=== PATIENT | female | born 1980 | race Caucasian/White ===

== ENCOUNTER 2019-10-11 14:57 | Emergency (ER) | payer MEDICAID ==
[~2019-10-11] VITALS: Ht 154.9 cm; Wt 81.2 kg
[2019-10-11] MEDS ORDERED: ONDANSETRON HCL/PF 4 MG/2 ML VIAL ONE (16:54)
[2019-10-11] MEDS ORDERED: IV NS 0.9% 1,000 ML BAG IV ONE (17:00)
[2019-10-11] MEDS ORDERED: ONDANSETRON HCL/PF 4 MG/2 ML VIAL IVP ONE (17:00)
--- NOTE | 2019-10-11 17:00 | NUR ---
PT BIB SELF C/O N/V/D/ABD PAIN X1-2 DAYS. ABD SOFT NON-TENDER. RESP EVEN UNLABORED. SKIN WARM DRY. AMBULATORY STEADY GAIT. IN ER BED 10.
[2019-10-11 17:06] LABS: BASOPHILS % (AUTO) 0.5 % (0.0-2.0); EOSINOPHILS % (AUTO) 4.9 % (0.0-6.0); HEMATOCRIT 43 % (33-45); HEMOGLOBIN 14.4 g/dL (11.5-14.8); LYMPHOCYTES # (AUTO) 1.6 /CMM (0.8-4.8); LYMPHOCYTES % (AUTO) 28.1 % (20.0-44.0); MEAN CORPUSCULAR HGB CONC 33 g/dl (31.0-36.0); MEAN CORPUSCULAR VOLUME 89 fL (82-100); MONOCYTES # (AUTO) 0.4 /CMM (0.1-1.30); MONOCYTES % (AUTO) 7.2 % (2.0-12.0); NEUTROPHILS # (AUTO) 3.3 /CMM (1.8-8.9); NEUTROPHILS % (AUTO) 59.3 % (43.0-81.0); PLATELET COUNT (AUTO) 274 /CMM (150-450); RED BLOOD CELL COUNT(AUTO) 4.87 MIL/uL (4.0-5.2); WHITE BLOOD COUNT (AUTO) 5.6 K/uL (4.3-11.0)
[2019-10-11 17:12] LABS: CREATININE 0.9 mg/dL (0.6-1.3)
[2019-10-11 17:18] LABS: ALBUMIN 3.7 g/dL (3.4-5.0); BILIRUBIN,TOTAL 0.3 mg/dL (0.2-1.0); TOTAL PROTEIN, SERUM 7.6 g/dL (6.4-8.2)
[2019-10-11 17:34] LABS: APPEARANCE,URINE Clear (CLEAR); BILIRUBIN,URINE Negative (NEGATIVE); BLOOD, URINE Large Ery/uL (NEGATIVE); COLOR,URINE Yellow (YELLOW); KETONES,URINE Negative (NEGATIVE); LEUKOCYTE ESTERASE ,URINE Negative (NEGATIVE); NITRITE, URINE Negative (NEGATIVE); PH,URINE 5.5 (5.0-8.0); PROTEIN,URINE 30 mg/dl (NEGATIVE); UGLUCOSE Negative (NEGATIVE); UROBILINOGEN,URINE 0.2 EU/dL (0.2)
[2019-10-11 17:46] LABS: BACTERIA,URINE None seen /HPF (None Seen); SQUAMOUS EPITHELIAL CELL,UR Few /HPF (None Seen); WBC,URINE 0-2 /HPF (0-3)
--- NOTE | 2019-10-11 18:39 | NUR ---
IV removed. Catheter intact and site benign. Pressure and 4x4 applied to site. No bleeding noted. Patient discharged to home in stable condition. Written and verbal after care instructions given. Patient verbalizes understanding of instruction. AMBULATORY STEADY GAIT.
[2019-10-11 18:40] VITALS: BP 112/69
== END 2019-10-11 18:45 | disposition home or self-care (01) ==
LOC: ER 15:06
DX: R10.11 Right upper quadrant pain (principal); R10.12 Left upper quadrant pain; R10.13 Epigastric pain; R11.2 Nausea with vomiting, unspecified; K59.00 Constipation, unspecified; R74.8 Abnormal levels of other serum enzymes; Z98.890 Other specified postprocedural states
CPT/HCPCS: 36415; 74018; 80048; 80076; 81001; 83690; 84703; 85025; 96361; 96374; 99284; J2405; J7030; 81000-TC

== ENCOUNTER 2020-11-02 22:07 | Emergency (ER) | payer MEDICAID ==
[~2020-11-02] VITALS: Ht 154.9 cm; Wt 81.6 kg
[2020-11-02 22:30] VITALS: BP 141/86
[2020-11-02] MEDS ORDERED: DEXAMETHASONE SOD PHOSPHATE 10 MG/ML VIAL ONE (22:45)
[2020-11-02] MEDS ORDERED: KETOROLAC TROMETHAMINE INJ 30 MG/ML VIAL ONE (22:45)
--- NOTE | 2020-11-02 22:50 | NUR ---
covid swab sent
[2020-11-02] MEDS ORDERED: KETOROLAC TROMETHAMINE INJ 60 MG/2 ML VIAL IM ONE (23:00)
[2020-11-02] MEDS ORDERED: DEXAMETHASONE SOD PHOSPHATE 4 MG/ML VIAL IM ONE (23:00)
--- NOTE | 2020-11-02 23:05 | NUR ---
pt unsure of her status. PA made aware w/ an order for test prior to toradol administration.
== END 2020-11-02 23:47 | disposition home or self-care (01) ==
LOC: ER 22:09
DX: J02.9 Acute pharyngitis, unspecified (principal); Z20.822 Contact with and (suspected) exposure to COVID-19; R03.0 Elevated blood-pressure reading, without diagnosis of hypertension
CPT/HCPCS: 84703; 96372 ×2; 99284; C9803; J1100; J1885; U0003

== ENCOUNTER 2024-05-20 22:42 | Emergency (ER) | payer MEDICAID, OTHER ==
[~2024-05-20] VITALS: Ht 165.1 cm; Wt 85.3 kg
[2024-05-21] MEDS ORDERED: IBUPROFEN 600 MG TABLET ONE (00:58)
[2024-05-21] MEDS ORDERED: PSEUDOEPHEDRINE HCL 30 MG TABLET ONE (00:59)
[2024-05-21] MEDS: IBUPROFEN 600 MG TABLET PO ONE (01:01)
[2024-05-21] MEDS: PSEUDOEPHEDRINE HCL 30 MG TABLET PO ONE (01:01)
[2024-05-21] MEDS ORDERED: PSEU120T99 PO (01:05)
[2024-05-21] MEDS ORDERED: BACI500P4 TP (01:05)
[2024-05-21 01:23] VITALS: BP 139/87; TEMP 98.4; O2SAT 99
== END 2024-05-21 01:24 | disposition home or self-care (01) ==
LOC: ER 22:45
DX: J32.9 Chronic sinusitis, unspecified (principal); L08.9 Local infection of the skin and subcutaneous tissue, unspecified